=== PATIENT | male | born 2000 | race Caucasian/White ===

== ENCOUNTER 2021-03-26 19:02 | Emergency (ER) | payer OTHER ==
[~2021-03-26] VITALS: Ht 175.3 cm; Wt 81.6 kg
[2021-03-26 19:07] VITALS: BP 131/86
[2021-03-26] MEDS ORDERED: LIDOCAINE-MPF 1%, 5ML ONE ×2 (19:52)
[2021-03-26] MEDS ORDERED: LIDOCAINE-MPF 1%, 5ML INFIL ONE (20:00)
== END 2021-03-26 21:13 | disposition home or self-care (01) ==
LOC: ED 20:45
DX: S61.411A Laceration without foreign body of right hand, initial encounter (principal); X58.XXXA Exposure to other specified factors, initial encounter; Y93.89 Activity, other specified; Y92.89 Other specified places as the place of occurrence of the external cause; Y99.8 Other external cause status
CPT/HCPCS: 12041; 99284